=== PATIENT | male | born 1980 | race African-American/Black ===

== ENCOUNTER 2019-06-05 21:21 | Emergency (ER) | payer MEDICAID, OTHER ==
[~2019-06-05] VITALS: Ht 175.3 cm; Wt 83.0 kg
[2019-06-05 21:32] VITALS: BP 134/86
== END 2019-06-06 02:07 | disposition home or self-care (01) ==
LOC: ER 21:21
DX: R42 Dizziness and giddiness (principal); Z59.0 Homelessness
CPT/HCPCS: 99283

== ENCOUNTER 2020-03-01 02:22 | Emergency (ER) | payer OTHER ==
[~2020-03-01] VITALS: Ht 175.3 cm; Wt 74.0 kg
[2020-03-01] MEDS ORDERED: IBUPROFEN 600MG TABLET PO ONE (03:00)
[2020-03-01] MEDS ORDERED: CYCLOBENZAPRINE 10MG TABLET PO ONE (03:00)
[2020-03-01] MEDS ORDERED: KETOROLAC 30MG/ML VIAL IM ONE (03:00)
[2020-03-01 07:30] VITALS: BP 158/74
== END 2020-03-01 07:55 | disposition left against medical advice (07) ==
LOC: ER 02:22
DX: M54.5 Low back pain (principal); F12.10 Cannabis abuse, uncomplicated; Z59.0 Homelessness
CPT/HCPCS: 99283